=== PATIENT | female | born 1955 | race Caucasian/White ===

== ENCOUNTER 2020-05-26 17:59 | Emergency (ER) | payer MEDICARE, OTHER ==
--- NOTE | 2020-05-26 18:41 | EKG REPORT ---
SEVERITY:- ABNORMAL ECG - SINUS RHYTHM LEFT BUNDLE BRANCH BLOCK : Confirmed by: Arun Koch MD 26-May-2020 18:41:23
[2020-05-26] MEDS ORDERED: ASPIRIN 81 MG TABLET, CHEWABLE PO ONE (19:00)
--- NOTE | 2020-05-26 19:03 | ER Document Report ---
ED Medical Screen (RME) - General Chief Complaint: Chest Pain > 30 Stated Complaint: CHEST PAIN,NAUSEA Primary Care Provider: ANDRÉS BERNAL MD [Primary Care Provider] - Follow up as needed Mode of Arrival: Ambulatory Information source: Patient Notes: 65-year-old female presented to ED for complaint of left chest pain that started about 619 she said it lasted about for 5 minutes it spread to her left shoulder around to the back of her neck and her jaw. She states she does have a history of high blood pressure, left bundle branch block, and depression. She states she had surgery on her neck where they did a cervical spine fusion. She does not smoke she drinks wine maybe once a month. She does not do any drugs. She is alert oriented respirations regular nonlabored speaking in full sentences. She states at the time of her chest pain she also had nausea and sweating and she still has the nausea but not the sweating. I have greeted and performed a rapid initial assessment of this patient. A comprehensive ED assessment and evaluation of the patient, analysis of test results and completion of medical decision making process will be conducted by an additional ED providers. - Related Data Allergies/Adverse Reactions: Sulfa (Sulfonamide Antibiotics) Allergy (Severe, Verified 04/23/12 09:37) rash Past Medical History - Past Medical History Cardiac Medical History: Reports: Hx Hypertension - on meds x 3 yrs, TRIAMTERENE/HCTZ Denies: Hx Coronary Artery Disease, Hx Heart Attack Pulmonary Medical History: Denies: Hx Asthma, Hx Bronchitis, Hx COPD, Hx Pneumonia Neurological Medical History: Denies: Hx Cerebrovascular Accident, Hx Seizures GI Medical History: Denies: Hx Hepatitis, Hx Hiatal Hernia, Hx Ulcer Musculoskeltal Medical History: Denies Hx Arthritis Infectious Medical History: Denies: Hx Hepatitis Past Surgical History: Reports: Hx Hysterectomy. Denies: Hx Mastectomy, Hx Open Heart Surgery, Hx Pacemaker - Immunizations Hx Diphtheria, Pertussis, Tetanus Vaccination: Yes Physical Exam - Vital signs Vitals: Temp Pulse Resp BP Pulse Ox 98.9 F 95 15 162/95 H 100 05/26/20 18:13 05/26/20 18:13 05/26/20 18:13 05/26/20 18:13 05/26/20 18:13 Course - Vital Signs Vital signs: Temp Pulse Resp BP Pulse Ox 98.9 F 95 15 162/95 H 100 05/26/20 18:13 05/26/20 18:13 05/26/20 18:13 05/26/20 18:13 05/26/20 18:13 Doctor's Discharge - Discharge Referrals: ANDRÉS BERNAL MD [Primary Care Provider] - Follow up as needed
[2020-05-26 19:52] LABS: ABSOLUTE BASOPHILS # (AUTO) 0.1 10^3/uL (0.0-0.2); ABSOLUTE EOSINOPHILS # (AUTO) 0.1 10^3/uL (0.0-0.6); ABSOLUTE LYMPHOCYTES (AUTO) 2.8 10^3/uL (0.5-4.7); ABSOLUTE MONOCYTES (AUTO) 0.6 10^3/uL (0.1-1.4); ABSOLUTE NEUT (AUTO) 8.3 10^3/uL (1.7-8.2); BASOPHILS % (AUTO) 0.6 % (0-2); EOSINOPHILS % (AUTO) 0.8 % (0-6); HEMATOCRIT 44.9 % (36.0-47.0); HEMOGLOBIN 15.1 g/dL (12.0-15.5); LYMPHOCYTES % (AUTO) 23.7 % (13-45); MEAN CORPUSCULAR HGB CONC 33.7 g/dL (32.0-36.0); MEAN CORPUSCULAR VOLUME 89 fl (80-97); MONOCYTES % (AUTO) 5.2 % (3-13); PLATELET COUNT 469 10^3/uL (150-450); RED BLOOD COUNT 5.05 10^6/uL (3.72-5.28); RED CELL DISTRIBUTION WIDTH 12.7 % (11.5-14.0); SEGMENTED NEUTROPHILS % (AUTO) 69.7 % (42-78); TOTAL CELLS COUNTED % (AUTO) 100 %; WHITE BLOOD COUNT 11.9 10^3/uL (4.0-10.5)
--- NOTE | 2020-05-26 19:54 | RADIOLOGY REPORT (SQ) ---
EXAM DESCRIPTION: CHEST 2 VIEWS IMAGES COMPLETED DATE/TIME: 05/26/2020 7:28 pm REASON FOR STUDY: chest pain COMPARISON: None. EXAM PARAMETERS: NUMBER OF VIEWS: two views TECHNIQUE: Digital Frontal and Lateral radiographic views of the chest acquired. RADIATION DOSE: NA LIMITATIONS: none FINDINGS: LUNGS AND PLEURA: No opacities, masses or pneumothorax. No pleural effusion. MEDIASTINUM AND HILAR STRUCTURES: No masses or contour abnormalities. HEART AND VASCULAR STRUCTURES: Heart normal size. No evidence for failure. BONES: No acute findings. HARDWARE: None in the chest. OTHER: No other significant finding. IMPRESSION: NO ACUTE RADIOGRAPHIC FINDING IN THE CHEST. TECHNICAL DOCUMENTATION: JOB ID: [id number] 2010 [employer]- All Rights Reserved Reading location - IP/workstation name: [email or web address]
[2020-05-26 20:12] LABS: ALBUMIN 5.1 g/dL (3.5-5.0); ALKALINE PHOSPHATASE 110 U/L (38-126); ANION GAP 7 (5-19); ASPARTATE AMINO TRANSFERASE 23 U/L (14-36); BILIRUBIN,TOTAL 0.4 mg/dL (0.2-1.3); BLOOD UREA NITROGEN 19 mg/dL (7-20); CARBON DIOXIDE 28 mmol/L (22-30); CHLORIDE 104 mmol/L (98-107); CREATINE KINASE 46 U/L (30-135); GLUCOSE 95 mg/dL (75-110); POTASSIUM 4.8 mmol/L (3.6-5.0); TOTAL PROTEIN 8.3 g/dL (6.3-8.2)
--- NOTE | 2020-05-26 23:20 | ER Document Report ---
Entered by TAMIA SOL SCRIBE 05/26/20 [id number] Acting as scribe for:MARTHA MENENDEZ DO ED General - General Chief Complaint: Chest Pain > 30 Stated Complaint: CHEST PAIN,NAUSEA Time Seen by Provider: 05/26/20 22:44 Primary Care Provider: ANDRÉS BERNAL MD [ACTIVE STAFF] - Follow up as needed Mode of Arrival: Ambulatory Information source: Patient Notes: This 65 year old female patient with a history of HTN and LBBB presents to the ED today with complaints of left-sided chest pain that started around 1400 this afternoon. Patient describes the pain as a deep ache that lasted approximately x10 minutes and radiated to her left shoulder and neck. Reports associated nausea and diaphoresis. No SOB. Patient states that she was outside doing some yard work prior to symptom onset. She notes that she is active outside on a regular basis and has never had chest pain before. Denies family history of CAD. Patient is chest pain free at this time. - Related Data Allergies/Adverse Reactions: Sulfa (Sulfonamide Antibiotics) Allergy (Severe, Verified 04/23/12 09:37) rash Home Medications: welbutrin. nortriptaline Past Medical History - General Information source: Patient - Social History Smoking Status: Never Smoker Cigarette use (# per day): No Chew tobacco use (# tins/day): No Smoking Education Provided: No Frequency of alcohol use: Rare Drug Abuse: None Lives with: Alone Family History: Reviewed & Not Pertinent Patient has suicidal ideation: No Patient has homicidal ideation: No - Past Medical History Cardiac Medical History: Reports: Hx Hypertension - on meds x 3 yrs, TRIAMTERENE/HCTZ Past Surgical History: Reports: Hx Hysterectomy - Immunizations Hx Diphtheria, Pertussis, Tetanus Vaccination: Yes Review of Systems - Review of Systems Constitutional: See HPI, Diaphoresis EENT: No symptoms reported Cardiovascular: See HPI, Chest pain Respiratory: See HPI. denies: Short of breath Gastrointestinal: See HPI, Nausea Genitourinary: No symptoms reported Female Genitourinary: No symptoms reported Musculoskeletal: See HPI, Joint pain, Neck pain Skin: No symptoms reported Hematologic/Lymphatic: No symptoms reported Neurological/Psychological: No symptoms reported -: Yes All other systems reviewed and negative Physical Exam - Vital signs Vitals: Temp Pulse Resp BP Pulse Ox 98.9 F 95 15 162/95 H 100 05/26/20 18:13 05/26/20 18:13 05/26/20 18:13 05/26/20 18:13 05/26/20 18:13 - General General appearance: Appears well, Alert In distress: None - HEENT Head: Normocephalic, Atraumatic Eyes: Normal Extraocular movements intact: Yes Pupils: PERRL - Respiratory Respiratory status: No respiratory distress Chest status: Nontender Breath sounds: Normal Chest palpation: Normal - Cardiovascular Rhythm: Regular Heart sounds: Normal auscultation Murmur: No Friction rub: No Gallop: None auscultated - Abdominal Inspection: Normal Distension: No distension Bowel sounds: Normal Tenderness: Nontender - Abdomen soft Organomegaly: No organomegaly - Back Back: Normal, Nontender - Extremities General upper extremity: Normal inspection General lower extremity: Normal inspection. No: Edema - Neurological Neuro grossly intact: Yes Orientation: AAOx4 [place] Coma Scale Eye Opening: Spontaneous [place] Coma Scale Verbal: Oriented [place] Coma Scale Motor: Obeys Commands [place] Coma Scale Total: 15 - Psychological Associated symptoms: Normal affect, Normal mood - Skin Skin Temperature: Warm Skin Moisture: Dry Skin Color: Normal Course - Re-evaluation Re-evalutation: 05/27/20 00:27 MDM 65 year old female with chest discomfort for about 10 minutes earlier this afternoon after going inside and drinking some water. She had been out in the heat of the day doing yardwork. She is convinced that this was indigestion. No sob or other symptoms with the chest discomfort. She did take some prilosec with the pain and it is gone. Her ekg showed a LBBB which she knows about and has had for some time. She exersices regularly more than she did today with the yard work, and never has occaision to have chest pain or other concerning symptoms. She is a who has a local pcp and would prefer to see her in follow up for further testing. As she has been pain free since before she arrived here, I do feel this is reasonable. We discussed taking 2 baby aspirin daily and she states she will do this and call her pcp later today for follow up. - Vital Signs Vital signs: Temp Pulse Resp BP Pulse Ox 98.9 F 95 16 149/85 H 96 05/26/20 18:13 05/26/20 18:13 05/27/20 00:01 05/27/20 00:01 05/27/20 00:01 - Laboratory Result Diagrams: 05/26/20 19:40 05/26/20 19:40 Laboratory results interpreted by me: 05/26/20 05/26/20 19:40 19:40 WBC 11.9 H Plt Count 469 H Absolute Neuts (auto) 8.3 H Calcium 11.0 H Magnesium 2.5 H Total Protein 8.3 H Albumin 5.1 H - Diagnostic Test Radiology reviewed: Image reviewed, Reports reviewed - EKG Interpretation by Me EKG shows normal: Sinus rhythm Rate: Normal Rhythm: NSR [place]/QRS: Left axis deviation, LBBB - NSR Nl [place] [address] elevation or depression. Similar to previous. My interpretation. Discharge - Discharge Clinical Impression: Chest pain Qualifiers: Chest pain type: unspecified Qualified Code(s): R07.9 - Chest pain, unspecified Condition: Stable Disposition: HOME, SELF-CARE Instructions: High Blood Pressure ([facility]), Chest Pain of Unclear Cause ([facility]) Additional Instructions: Your blood pressure was elevated a bit here and should be rechecked. Call your doctor's office later today for follow up. As discussed take 2 baby (81 mg) aspirin daily. Please return here for chest pain, shortness of breath or other problems or concerns. Referrals: ANDRÉS BERNAL MD [ACTIVE STAFF] - 05/27/20 I personally performed the services described in the documentation, reviewed and edited the documentation which was dictated to the scribe in my presence, and it accurately records my words and actions.
[2020-05-27 00:13] VITALS: BP 149/85
== END 2020-05-27 00:30 | disposition home or self-care (01) ==
LOC: ER 17:59
DX: R07.9 Chest pain, unspecified (principal); R11.0 Nausea; M54.2 Cervicalgia; M25.512 Pain in left shoulder; R61 Generalized hyperhidrosis; I10 Essential (primary) hypertension; I44.7 Left bundle-branch block, unspecified; Z79.899 Other long term (current) drug therapy; Z88.2 Allergy status to sulfonamides; Z82.49 Family history of ischemic heart disease and other diseases of the circulatory system
CPT/HCPCS: 93005; 99285; 36415; 82550; 83690; 83735; 84443; 85025; 80053; 84484; 71046; 93010; A9270